=== PATIENT | male | born 1960 | race African-American/Black ===

== ENCOUNTER 2022-11-05 10:20 | Emergency (ER) | payer OTHER, BC ==
[2022-11-05] MEDS ORDERED: Sodium Chloride 0.9% 10 ML Syringe FLUSH PRN (10:26)
[2022-11-05 11:21] LABS: ANION GAP 8.7 meq/L (7-15)
[2022-11-05] MEDS: Sodium Chloride 0.9% 1,000 ML IV SCH (11:33)
[2022-11-05] MEDS: Iopamidol 755 Mg/ML 100 ML Bottle IVPUSH STA (11:54)
[2022-11-05 15:12] VITALS: BP 115/58; PULSE 62
== END 2022-11-05 14:50 | disposition home or self-care (01) ==
LOC: LL.ED 10:20
DX: F41.9 Anxiety disorder, unspecified (principal); I10 Essential (primary) hypertension; K21.9 Gastro-esophageal reflux disease without esophagitis; E11.9 Type 2 diabetes mellitus without complications; E66.9 Obesity, unspecified; Z68.41 Body mass index [BMI] 40.0-44.9, adult; Z88.1 Allergy status to other antibiotic agents; Z79.82 Long term (current) use of aspirin; Z79.84 Long term (current) use of oral hypoglycemic drugs; Z79.899 Other long term (current) drug therapy
CPT/HCPCS: 36415; 71045; 71275; 80053; 82550; 83605; 83735; 83880; 84443; 84484; 85025; 85379; 85610; 85730; 93005; 96360; 99285-25; J7030; Q9967